=== PATIENT | female | born 1980 | race Caucasian/White ===

== ENCOUNTER 2016-12-24 17:59 | Emergency (ER) | payer SELFPAY ==
--- NOTE | 2016-12-24 20:09 | CT REPORT ---
History: Recent fall with head injury. Headache and posterior neck pain. Comparison: None. Technique: Axial CT through cervical spine without contrast. Coronal and sagittal reformatted images were made f rom the axial data set. This examination was performed using automated exposure control, adjustment o f mA or kV according to patient size, and/or use of iterative reconstruction technique. Findings: There is reversal of the cervical lordosis centered at C6 without spondylolisthesis. Intervertebral d isc space and vertebral body heights are well preserved. No obvious disc protrusion. There is mild bi lateral uncinate ridging at C5-6 and C6-7. No significant facet arthropathy. There is no evidence of acute bony injury. The lung apices are clear. The cervical soft tissues are unremarkable. Impression: 1. Straightening/reversal of the cervical lordosis. 2. No evidence of acute bony injury. Final Electronic Signature: This report was electronically signed by Tirso Acevedo MD on 12/24/2016 8 :07 PM. [email or web address] /
--- NOTE | 2016-12-24 20:27 | ER PHYSICIAN DOCUMENTATION ---
Physician Documentation [facility] Name:Patti Conte Age:36 yrs Sex:Female :1980 Arrival Date:12/24/2016 Time:17:59 Bed2 Private MD:No PCP, Identified ED Teofilo Ríos Disposition: 12/24 20:30 Chart complete. tl1 Disposition: 12/24/16 20:21 Discharged to Home/Self Care. Impression: Closed Head Injury w/o Cranial Wound, Unspec State LOC, Neck Sprain. - Condition is Good. - Discharge Instructions: NECK SPRAIN/STRAIN, Acute Brain Injuries - HEAD INJURY, No Wake-Up (Adult). - Medical Reconciliation form form. - Follow up: Private Physician; When: As needed; Reason: Recheck today's complaints. - Problem is new. - Symptoms are unchanged. HPI: 18:20 This 36 yrs old Female presents to ER via Walk In with complaints of Fall tl1 Injury. 18:20 Details of fall: The patient fell from an upright position. Onset: The tl1 symptom(s)/episode began/occurred last night. She fell getting out of the tub, striking her right quads, and her back on the side of the tub, before hitting her left occiput as well. there was no LOC. She had some alcohol last night. She had a h/a, but was able to sleep last night. She comes in now because of a persistent h/a. She is going to be driving tomorrow, and fairly active and she wants to make sure she is OK to do those things. She does have some neck pain. She denies CP, SOB, AP, N/V, N/W/T.. Historical: - Allergies: No known drug Allergies; - Home Meds: 1. None - Tetanus: < 10 years < 10 years. - Ebola Screening: : Patient negative for fever greater than or equal to 101.5 degrees Fahrenheit, and additional compatible Ebola Virus Disease symptoms. Patient denies exposure to infectious person. Patient denies travel to an Ebola-affected area in the 21 days before illness onset. No symptoms or risks identified at this time. . - Immunization history: Flu Vaccine unknown. - Social history: Smoking status: Patient states former smoker of tobacco. ROS: 18:20 MS/extremity: Positive for abrasion, contusion, Negative for laceration, paresthesias. tl1 18:20 Neuro: Positive for headache, Negative for altered mental status, dizziness, gait disturbance, loss of consciousness, numbness, speech changes, syncope, visual changes, weakness. Exam: 18:20 Constitutional: This is a well developed, well nourished patient who is awake, alert, tl1 and in no acute distress. 18:20 Head/face: Noted is Perry signs, on the left, hematoma, of the left occipital area. 18:20 Eyes: Periorbital structures: appear normal, Pupils: equal, round, and reactive to light and accomodation, Extraocular movements: 18:20 ENT: External ear(s): are unremarkable, TM's: are normal, Nose: is normal. 18:20 Neck: External neck: is normal, C-spine: vertebral tenderness, that is moderate, appreciated at C2, C3, C4 and C5, ROM/movement: is normal. 18:20 Chest/axilla: Palpation: is normal, crepitus, is not appreciated, tenderness, is not appreciated. 18:20 Cardiovascular: Rate: normal, Rhythm: regular, Heart sounds: normal, Edema: is not appreciated, JVD: 18:20 Respiratory: the patient does not display signs of respiratory distress, Respirations: normal, Breath sounds: are normal. 18:20 Abdomen/GI: Palpation: abdomen is soft and non-tender. 18:20 Back: normal spinal alignment noted, CVA tenderness, is absent, spine NTTP. She has some very mild TTP and scratches to the right subscapular area.. 18:20 Musculoskeletal/extremity: Extremities: grossly normal except: noted in the right quadriceps: tenderness, ROM: no acute changes. 18:20 Neuro: Orientation: is normal, Mentation: is normal, Memory: is normal, Cranial nerves: grossly normal, Gait: is steady, at a normal pace, without difficulty, appropriate for age. Vital Signs: 18:09 BP 137 / 80; Pulse 99; Resp 18; Temp 97.9; Pulse Ox 92% ; Weight 63.5 kg; Height 5 ft. bw2 6 in. (167.64 cm); Pain 3/10; 20:26 BP 128 / 90; Pulse 90; Resp 14; Pulse Ox 96% on R/A; Pain 5/10; lb 18:09 Body Mass Index 22.60 (63.50 kg, 167.64 cm) bw2 Trauma Score (Adult): 18:09 Eye Response: spontaneous(1); Verbal Response: oriented(1); Motor Response: obeys bw2 commands(2); Systolic BP: > 89 mm Hg(4); Respiratory Rate: 10 to 29 per min(4); [place] Score: 15; Trauma Score: 12 MDM: 18:10 Patient medically screened. tl1 19:20 Data reviewed: vital signs, nurses notes, radiologic studies, CT scan, and as a result, tl1 I will discharge patient. Counseling: I had a detailed discussion with the patient and/or guardian regarding: the historical points, exam findings, and any diagnostic results supporting the discharge/admit diagnosis, radiology results, the need for outpatient follow up, to return to the emergency department if symptoms worsen or persist or if there are any questions or concerns that arise at home. ED course: No change in her symptoms. Normal head CT and neck CT were reassuring.. 12/24 20:11 Order name: CAT SCAN; CERVICAL [id number] EDMS 12/25 02:58 Order name: CAT SCAN; HEAD W/O CON [id number] EDMS Dispensed Medications: No medications were administered Signatures: Teofilo Reid MD MD 1 Joselyn Aparicio 2 Anne Marie Stoddard
--- NOTE | 2016-12-24 20:27 | ER NURSING DOCUMENTATION ---
Nurse's Notes [facility] Name:Patti Conte Age:36 yrs Sex:Female :1980 Arrival Date:12/24/2016 Time:17:59 Bed2 Private MD:No PCP, Identified Diagnosis:Closed Head Injury w/o Cranial Wound, Unspec State LOC;Neck Sprain Presentation: 12/24 18:02 Acuity: [place] 3 bw2 18:06 Presenting complaint: Patient states: pt states she fell in shower yesterday. has right bw2 knee pain, and left head pain. pt denies LOC, pt able to ambulate without assistance. Care prior to arrival: None. Mechanism of Injury: Fall standing. Trauma event details: Injury occurred in the [facility] Injury occurred at home. Injury occurred December 23, 2016 Injury occurred at 18:00. 18:06 Method Of Arrival: Walk In 2 Historical: - Allergies: No known drug Allergies; - Home Meds: 1. None - Tetanus: < 10 years < 10 years. - Ebola Screening: : Patient negative for fever greater than or equal to 101.5 degrees Fahrenheit, and additional compatible Ebola Virus Disease symptoms. Patient denies exposure to infectious person. Patient denies travel to an Ebola-affected area in the 21 days before illness onset. No symptoms or risks identified at this time. . - Immunization history: Flu Vaccine unknown. - Social history: Smoking status: Patient states former smoker of tobacco. Screenin:10 Abuse screen: Denies threats or abuse. Denies injuries from another. Nutritional bw2 screening: No deficits noted. Tuberculosis screening: No symptoms or risk factors identified. 18:11 Infectious Disease Risk None. bw2 Primary Survey: 18:09 Airway: patent. Breathing/Chest: Respiratory pattern: regular. Circulation: Pulses: bw2 palpable . Assessment: 18:08 General: Appears in no apparent distress, Behavior is appropriate for age. Pain: bw2 Complains of pain in right knee, left head. Vital Signs: 18:09 BP 137 / 80; Pulse 99; Resp 18; Temp 97.9; Pulse Ox 92% ; Weight 63.5 kg; Height 5 ft. bw2 6 in. (167.64 cm); Pain 3/10; 20:26 BP 128 / 90; Pulse 90; Resp 14; Pulse Ox 96% on R/A; Pain 5/10; lb 18:09 Body Mass Index 22.60 (63.50 kg, 167.64 cm) bw2 Trauma Score (Adult): 18:09 Eye Response: spontaneous(1); Verbal Response: oriented(1); Motor Response: obeys bw2 commands(2); Systolic BP: > 89 mm Hg(4); Respiratory Rate: 10 to 29 per min(4); [place] Score: 15; Trauma Score: 12 ED Course: 18:00 Patient arrived in ED. ds 18:01 No PCP, Identified is Private Physician. ds 18:02 Joselyn Aparicio is Primary Nurse. bw2 18:02 Triage completed. bw2 18:09 Teofilo Reid MD is Attending Physician. tl1 18:11 Patient has correct armband on for positive identification. bw2 18:11 Valuables Remains with patient. bw2 Administered Medications: No medications were administered Outcome: 20:21 Discharge ordered by . tl1 20:26 Discharged to home ambulatory. lb 20:26 Condition: good 20:26 Discharge Assessment: Patient awake, alert and oriented x 3. No cognitive and/or functional deficits noted. Patient verbalized understanding of disposition instructions. 20:27 Patient left the ED. lb 06/08 12:25 Discharge F/U Call: Unable to reach: no answer st Signatures: Imelda Owens RN RN st Srot, Deidra, Reg Reg Jennifer Fung Tom, MD MD tl1 Joselyn Aparicio bw2 Anne Marie Stoddard lb
--- NOTE | 2016-12-25 02:57 | CT REPORT ---
HISTORY: Status post fall with headache COMPARISON: None. TECHNIQUE: Axial non-contrast images obtained from skull vertex through foramen magnum. Dose reduction technique was utilized. FINDINGS: There is a left parietal region scalp hematoma. No underlying calvarial fracture seen. No intracranial hemorrhage. No midline shift or mass lesion. No hydrocephalus. No pathologic extra ax ial fluid collection. IMPRESSION: 1. No evidence of an acute intracranial process. 2. Left parietal scalp hematoma without adjacent calvarial fracture. Final Electronic Signature: This report was electronically signed by Alon Rubi MD on 12/24/2016 8:05 PM. rob /
== END 2016-12-24 20:27 | disposition home or self-care (01) ==
LOC: ER 17:59
DX: S06.890A Other specified intracranial injury without loss of consciousness, initial encounter (principal); S13.4XXA Sprain of ligaments of cervical spine, initial encounter; S70.311A Abrasion, right thigh, initial encounter; S20.411A Abrasion of right back wall of thorax, initial encounter; W18.2XXA Fall in (into) shower or empty bathtub, initial encounter; Y92.092 Bedroom in other non-institutional residence as the place of occurrence of the external cause; Y93.E1 Activity, personal bathing and showering
CPT/HCPCS: 70450; 72125; 99281